=== PATIENT | male | born 1950 | race Two or more races ===

== ENCOUNTER 2024-06-21 20:50 | Emergency (ER) | payer OTHER ==
[~2024-06-21] VITALS: Ht 175.3 cm; Wt 83.9 kg
[~2024-06-21 20:50] MED LIST: AMLODIPINE-OLM1 EAC3 PO; DAFLONEX-XL 11300 MG PO; DOLOGESIC-DF 51 EACH PO; NORFLEX100MG PO; PLAVIX75 MG PO; ZESTRIL20 MG PO
[2024-06-21] MEDS ORDERED: KETO10TA2 PO (21:23)
[2024-06-21] MEDS ORDERED: NORFLEX100MG PO (21:23)
[2024-06-21] MEDS ORDERED: ORPHENADRINE CITRATE 30 MG/ML AMPUL IM ONE (21:30)
[2024-06-21] MEDS ORDERED: KETOROLAC TROMETHAMINE 60 MG VIAL IM ONE (21:30)
== END 2024-06-21 21:41 | disposition home or self-care (01) ==
LOC: ER 20:50
DX: M25.511 Pain in right shoulder (principal); I10 Essential (primary) hypertension
CPT/HCPCS: 96372; 99282; J1885; J2360